=== PATIENT | female | born 1945 | race Caucasian/White ===

== ENCOUNTER → 2019-02-23 08:35 | Outpatient (CLI) | payer MEDICARE, SELFPAY ==
--- NOTE | 2019-02-23 08:40 | MM_ITS ---
PROCEDURE: MM DIG SCREENING MAMM BI W/CAD CLINICAL INDICATION: SCREENING There is no personal or family history of breast cancer. There has been previous biopsy left breast for benign disease. COMPARISON: [facility] DIGITAL MAMM SURGICAL SPECIMEN from 11/06/2010 [facility] DIG MAMM-SCREEN ANDREY from 06/02/2014 DMDXUAVR DIG MAMM-DX UNI ADD VIEWS-RT from 07/06/2014 TECHNIQUE: Standard CC and MLO images were obtained. R2 CAD reviewed. FINDINGS: Scattered diffuse fibroglandular densities are seen throughout both breasts. Is a stable asymmetric density upper-outer quadrant right breast. There are benign-appearing micro and in each breast. There is faint arterial calcification noted bilaterally. There is no suspicious lesion and no suspicious microcalcifications. IMPRESSION: Fibrofatty parenchyma with no suspicious lesions seen BI-RAD Category: 2 Benign Finding(s) FOLLOW-UP: 1YR 1 Year Follow-up (A letter has been sent to the patient regarding results of the study.) Dictated by: Dr. Prabhakar Patterson MD 02/28/2019 14:54 Signed by: <Electronically signed by Dr. Prabhakar Patterson MD in [place]> 02/28/2019 14:54
--- NOTE | 2019-02-23 09:12 | XR_ITS ---
PROCEDURE: XR DEXA AXIAL SKELETON CLINICAL HISTORY: POST MENOPAUSAL COMPARISON: No exams were available for comparison TECHNIQUE: FINDINGS: The L1-L4 density is 0.957 grams/centimeters sq with T-score of -1.9 indicating osteopenia. Right femoral neck density is 0.720 grams/centimeters sq with a T-score of -2.3 indicating osteopenia. IMPRESSION: Osteopenia with moderate fracture risk. Treatment advised. Suggest follow-up exam January 2021 Dictated by: Stephen Strong MD 02/23/2019 09:56 Signed by: <Electronically signed by Stephen Strong MD in [place]> 02/23/2019 09:56
== END ==
PROVIDERS: PCP Family Medicine; Visit Provider Family Medicine
DX: Z12.31 Encounter for screening mammogram for malignant neoplasm of breast (principal); Z78.0 Asymptomatic menopausal state
CPT/HCPCS: 77067; 77080

== ENCOUNTER → 2023-03-06 12:14 | Outpatient (CLI) | payer MEDICARE, SELFPAY ==
--- NOTE | 2023-03-06 12:43 | CA_ITS ---
FINAL REPORT TECHNIQUE: Color Doppler, duplex Doppler and dos santos scale sonography of the bilateral neck vasculature was performed. Velocities were measured in the carotid arteries. Stenosis evaluation based on velocity criteria. CLINICAL HISTORY: HTN,BILATERAL RETINAL HEMORRHAGE COMPARISON: None FINDINGS: The peak systolic velocity of the right common carotid artery is 53.5 cm/sec and internal carotid artery 86.6 cm/sec. The diastolic velocity in the internal carotid artery is 26.7 cm/sec. The ICA/CCA ratio is 1.7. Visually, a small amount of plaque is seen. These findings are consistent with less than 50% stenosis. The external carotid artery is patent. The right vertebral artery is patent with antegrade flow. The peak systolic velocity of the left common carotid artery is 74.5 cm/sec and internal carotid artery 82.3 cm/sec. The diastolic velocity in the internal carotid artery is 33 cm/sec. The ICA/CCA ratio is 1.4. Visually, a small amount of plaque is seen. These findings are consistent with less than 50% stenosis. The external carotid artery is patent. The left vertebral artery is patent with antegrade flow. IMPRESSION: No evidence of significant carotid stenosis. Bilateral patent vertebral arteries. If indicated, CTA or MRA could further evaluate. Reviewed, Interpreted and Dictated by Jared Altman III, MD Transcribed by Laila Alejandra Authenticated and [facility]
== END ==
PROVIDERS: PCP Internal Medicine Adolescent Medicine; Visit Provider Internal Medicine Adolescent Medicine
DX: I10 Essential (primary) hypertension (principal); H35.63 Retinal hemorrhage, bilateral
CPT/HCPCS: 93880

== ENCOUNTER → 2023-03-13 13:07 | Outpatient (CLI) | payer MEDICARE, OTHER, SELFPAY ==
--- NOTE | 2023-03-13 13:26 | MR_ITS ---
FINAL REPORT CLINICAL HISTORY: ACCELERATED HYPERTEMSION RETINAL HEMORRHAGE OF BOTH EYES FINDINGS: Multiplanar MR imaging of the brain was performed without contrast. There is mild age-appropriate atrophy. There are scattered foci of increased T2 signal in the cerebral white matter that have a nonspecific appearance but likely represent mild chronic ischemic/gliotic changes. There is no evidence of intracranial hemorrhage or mass. No abnormal ventricular dilatation is identified. No abnormal extra-axial fluid collection is seen. No abnormality is seen on the diffusion weighted images. The posterior fossa and brainstem are unremarkable. Normal major vessel vascular flow voids are seen. IMPRESSION: Age-appropriate atrophy and mild chronic ischemic/gliotic changes. No acute intracranial abnormality. Reviewed, Interpreted and Dictated by Jared Altman III, MD Transcribed by Mora Doran Authenticated and [facility]
== END ==
PROVIDERS: PCP Internal Medicine Adolescent Medicine; Visit Provider Internal Medicine Adolescent Medicine
DX: I10 Essential (primary) hypertension (principal); H35.63 Retinal hemorrhage, bilateral
CPT/HCPCS: 70551